=== PATIENT | female | born 1975 | race Caucasian/White ===

== ENCOUNTER 2016-06-04 15:15 | Inpatient (IN) | payer MEDICARE, MEDICAID ==
[~2016-06-04] VITALS: Ht 167.6 cm; Wt 65.1 kg
[~2016-06-04 15:15] MED LIST: GABA-531 PO; OLAN10TA6 PO
[2016-06-04] MEDS ORDERED: LORazepam 2 MG TABLET PO PRN (19:30)
[2016-06-04] MEDS ORDERED: ZOLPIDEM TARTRATE 10 MG TABLET PO PRN (19:30)
[2016-06-04] MEDS ORDERED: HALOPERIDOL 5 MG TABLET PO PRN (19:30)
[2016-06-04] MEDS ORDERED: INFLUENZA VIRUS VACCINE QVS 2016-17 (3YR+)/PF 60 MCG/0.5 ML SYRINGE IM ONE (20:00)
[2016-06-04 20:36] VITALS: BP 141/90
[2016-06-05 06:42] VITALS: BP 131/87
[2016-06-05 07:15] LABS: BASOPHILS # (AUTO) 0.06 K/uL (0.00-0.20); BASOPHILS % (AUTO) 0.9 % (0.0-2.0); EOSINOPHILS # (AUTO) 0.24 K/uL (0.00-0.70); EOSINOPHILS % (AUTO) 3.71 % (1.0-6.0); HEMATOCRIT 38.9 % (36-46); HEMOGLOBIN 13.3 g/dL (12.0-16.0); LYMPHOCYTES # (AUTO) 1.4 K/uL (1.0-4.8); LYMPHOCYTES % (AUTO) 22.2 % (22.0-44.0); MEAN CORPUSCULAR HEMOGLOBIN 31.1 pg (26.0-34.0); MEAN CORPUSCULAR HGB CONC 34.2 G/dL (31.0-37.0); MEAN CORPUSCULAR VOLUME 91 fL (80-100); MONOCYTES # (AUTO) 0.5 K/uL (0.1-1.0); MONOCYTES % (AUTO) 7.1 % (2.0-9.0); NEUTROPHILS # (AUTO) 4.3 K/uL (1.8-7.7); NEUTROPHILS % (AUTO) 66.1 % (40.0-70.0); PLATELET COUNT (AUTO) 274 K/uL (150-450); RED BLOOD CELL COUNT(AUTO) 4.28 MIL/uL (4.00-5.20); RED CELL DISTRIBUTION WIDTH 12.7 % (11.5-14.5); WHITE BLOOD COUNT (AUTO) 6.4 K/uL (4.5-11.0)
[2016-06-05 07:39] LABS: ALANINE AMINOTRANSFERASE 16 U/L (12-78); ALBUMIN 3.7 g/dL (3.4-5.0); ANION GAP 7 mmol/L (8-16); ASPARTATE AMINOTRANSFERASE 13 U/L (15-37); BILIRUBIN,TOTAL 0.6 mg/dL (0.1-1.0); CALCIUM, TOTAL 8.9 mg/dL (8.8-10.5); CARBON DIOXIDE 29 mmol/L (22-29); CHLORIDE 107 mmol/L (98-107); CREATININE 0.68 mg/dL (0.60-1.30); GLOMERULAR FILTR. RATE CALC > 60 mL/min (>60); SODIUM SERUM 143 mmol/L (136-145); THYROID STIMULATING HORMONE 1.91 uIU/mL (0.36-3.74); TOTAL PROTEIN, SERUM 6.8 g/dL (6.4-8.2); UREA NITROGEN, BLOOD 7 mg/dL (7-18)
[2016-06-05 08:21] VITALS: BP 116/72
[2016-06-05] MEDS ORDERED: ACETAMINOPHEN 325 MG TABLET PO PRN (11:45)
[2016-06-05] MEDS ORDERED: BENZOCAINE/MENTHOL LOZENGE MM PRN (11:45)
[2016-06-05] MEDS ORDERED: CloNIDine HCL 0.1 MG TABLET PO PRN (11:45)
[2016-06-05] MEDS ORDERED: LOPERAMIDE HCL 2 MG CAPSULE PO PRN (11:45)
[2016-06-05] MEDS ORDERED: IBUPROFEN 600 MG TABLET PO PRN (11:45)
[2016-06-05] MEDS ORDERED: PETROLATUM,WHITE 71 GM JELLY TP PRN (11:45)
[2016-06-05] MEDS ORDERED: MAG HYDROX/AL HYDROX/SIMETH ES 30 ML SUSPENSION UDCUP PO PRN (11:45)
[2016-06-05] MEDS ORDERED: BACITRACIN 28.4 GM OINTMENT TP PRN (11:45)
[2016-06-05] MEDS ORDERED: MAGNESIUM HYDROXIDE SUSPENSION 30 ML UDCUP PO PRN (11:45)
[2016-06-05] MEDS ORDERED: ALBUTEROL SULFATE HFA 90 MCG/PUFF 8 GM INHALER IH PRN (11:45)
[2016-06-05] MEDS ORDERED: ONDANSETRON HCL 4 MG TABLET PO PRN (11:45)
[2016-06-05] MEDS: OLANZapine 10 MG TABLET PO SCH (20:24)
[2016-06-06 06:28] VITALS: BP 135/72
[2016-06-06 08:21] VITALS: BP 127/99
[2016-06-06 16:12] VITALS: BP 134/87
[2016-06-06] MEDS: OLANZapine 10 MG TABLET PO SCH (20:32)
[2016-06-07 06:24] VITALS: BP 128/72
[2016-06-07 08:40] VITALS: BP 124/73
[2016-06-07] MEDS ORDERED: PHENYLEPHRINE/SHK LV/MIN OIL/PET 57 GM OINTMENT TP PRN ×2 (19:00→21:15)
[2016-06-07] MEDS: OLANZapine 10 MG TABLET PO SCH (20:32)
[2016-06-08 03:00] VITALS: BP 125/89
[2016-06-08 16:27] VITALS: BP 134/84
[2016-06-08] MEDS: OLANZapine 10 MG TABLET PO SCH (20:03)
[2016-06-09 00:05] VITALS: BP 119/78
[2016-06-09 08:32] VITALS: BP 91/54
[2016-06-09 16:02] VITALS: BP 138/88
[2016-06-09] MEDS: OLANZapine 10 MG TABLET PO SCH (21:11)
[2016-06-10 07:00] VITALS: BP 140/72
[2016-06-10 16:04] VITALS: BP 128/93
[2016-06-10] MEDS: OLANZapine 10 MG TABLET PO SCH (20:15)
[2016-06-11 05:59] VITALS: BP 124/89
[2016-06-11 08:39] VITALS: BP 123/72
[2016-06-11 16:07] VITALS: BP 123/83
[2016-06-11] MEDS: OLANZapine 10 MG TABLET PO SCH (20:10)
[2016-06-12 08:27] VITALS: BP 100/50
[2016-06-12] MEDS ORDERED: TUBERCULIN, PURIFIED PROTEIN DERIVATIVE 5 TU/0.1 ML SYG ID ONE (16:45)
[2016-06-12] MEDS: OLANZapine 10 MG TABLET PO SCH (20:26)
[2016-06-13 07:01] VITALS: BP 110/76
[2016-06-13 08:28] VITALS: BP 116/69
[2016-06-13] MEDS: OLANZapine 10 MG TABLET PO SCH (20:08)
[2016-06-14 06:56] VITALS: BP 112/68
[2016-06-14 08:25] VITALS: BP 129/76
[2016-06-14] MEDS: OLANZapine 10 MG TABLET PO SCH (20:34)
[2016-06-15 08:38] VITALS: BP 100/58
[2016-06-15 16:24] VITALS: BP 134/64
[2016-06-15] MEDS: OLANZapine 10 MG TABLET PO SCH (21:00)
[2016-06-16 06:20] VITALS: BP 125/77
[2016-06-16 16:30] VITALS: BP 126/77
[2016-06-16] MEDS: OLANZapine 10 MG TABLET PO SCH (20:03)
[2016-06-17 09:38] VITALS: BP 122/70
[2016-06-17] MEDS: HALOPERIDOL DECANOATE 100 MG/ML AMP IM SCH ×2 (13:15→21:43)
[2016-06-17 16:00] VITALS: BP 130/75
[2016-06-17] MEDS: OLANZapine 10 MG TABLET PO SCH ×2 (20:43→21:25)
[2016-06-18 16:11] VITALS: BP 110/71
[2016-06-19 09:01] VITALS: BP 131/83
[2016-06-19 16:00] VITALS: BP 105/64
[2016-06-19] MEDS: MUPIROCIN CALCIUM 2% 22 GM OINTMENT TP SCH (16:14)
[2016-06-19] MEDS: OLANZapine 10 MG TABLET PO SCH (20:50)
[2016-06-20] MEDS: MUPIROCIN CALCIUM 2% 22 GM OINTMENT TP SCH (09:00)
[2016-06-20] MEDS: OLANZapine 10 MG TABLET PO SCH (20:22)
[2016-06-21] MEDS: OLANZapine 10 MG TABLET PO SCH (21:04)
[2016-06-22 08:28] VITALS: BP 112/60
[2016-06-22] MEDS ORDERED: OLAN10TA3 PO (09:38)
[2016-06-22] MEDS ORDERED: HALOD100I IM (09:38)
== END 2016-06-22 10:00 | disposition home or self-care (01) | DRG 885 ==
LOC: B3A 19:30 → B2S 06-15 11:05
PROVIDERS: ADMIT Psychiatry & Neurology Psychiatry; ATTEND Psychiatry & Neurology Psychiatry
DX: F25.9 Schizoaffective disorder, unspecified (principal); K59.00 Constipation, unspecified; G47.00 Insomnia, unspecified; F17.200 Nicotine dependence, unspecified, uncomplicated; K62.89 Other specified diseases of anus and rectum; F22 Delusional disorders; Z53.29 Procedure and treatment not carried out because of patient's decision for other reasons; Z98.51 Tubal ligation status; Z71.6 Tobacco abuse counseling; Z28.21 Immunization not carried out because of patient refusal
CPT/HCPCS: 84436; 84439; 84443; 87081; J1631

== ENCOUNTER 2018-12-20 14:23 | Emergency (ER) | payer MEDICARE, OTHER ==
[~2018-12-20] VITALS: Ht 172.7 cm; Wt 63.6 kg
[~2018-12-20 14:23] MED LIST changes: -GABA-531 PO; +HALOD100I IM; +OLAN10TA3 PO; -OLAN10TA6 PO
[2018-12-20 16:00] VITALS: BP 142/89
== END 2018-12-20 16:23 | disposition home or self-care (01) ==
LOC: EMS 14:25
DX: Z78.0 Asymptomatic menopausal state (principal); F32.9 Major depressive disorder, single episode, unspecified; F20.9 Schizophrenia, unspecified; F17.210 Nicotine dependence, cigarettes, uncomplicated
CPT/HCPCS: 99406

== ENCOUNTER 2018-12-28 15:11 | Emergency (ER) | payer MEDICARE, OTHER ==
[~2018-12-28] VITALS: Ht 160 cm; Wt 69.8 kg
[~2018-12-28 15:11] MED LIST changes: -HALOD100I IM
[2018-12-28] MEDS ORDERED: IBUPROFEN 600 MG TABLET PO ONE (15:30)
[2018-12-28 16:58] VITALS: BP 125/79
== END 2018-12-28 17:27 | disposition home or self-care (01) ==
LOC: EMS 15:12
DX: S93.492A Sprain of other ligament of left ankle, initial encounter (principal); F32.9 Major depressive disorder, single episode, unspecified; F20.9 Schizophrenia, unspecified; F17.210 Nicotine dependence, cigarettes, uncomplicated; Z98.51 Tubal ligation status; Z79.899 Other long term (current) drug therapy; Z98.890 Other specified postprocedural states; X50.1XXA Overexertion from prolonged static or awkward postures, initial encounter; Y93.01 Activity, walking, marching and hiking; Y92.89 Other specified places as the place of occurrence of the external cause; Y99.8 Other external cause status

== ENCOUNTER 2020-03-02 17:59 | Emergency (ER) | payer MEDICARE, OTHER ==
[~2020-03-02] VITALS: Ht 175.3 cm; Wt 70.5 kg
[2020-03-02 18:06] VITALS: BP 118/78
== END 2020-03-02 22:24 | disposition left against medical advice (07) ==
LOC: EMS 18:01
DX: Z00.00 Encounter for general adult medical examination without abnormal findings (principal); Z53.21 Procedure and treatment not carried out due to patient leaving prior to being seen by health care provider

== ENCOUNTER 2020-11-23 00:04 | Emergency (ER) | payer MEDICARE, OTHER ==
[~2020-11-23] VITALS: Ht 170.2 cm; Wt 60.0 kg
[~2020-11-23 00:04] MED LIST changes: -OLAN10TA3 PO; +OLAN10TA74 PO
[2020-11-23 01:07] VITALS: BP 112/85
[2020-11-23 01:12] LABS: BASOPHILS % (AUTO) 1.1 % (0.0-2.0); EOSINOPHILS % (AUTO) 3.2 % (1.0-6.0); HEMATOCRIT 37.1 % (36-46); HEMOGLOBIN 12.8 g/dL (12.0-16.0); LYMPHOCYTES # (AUTO) 1.5 K/uL (1.0-4.8); LYMPHOCYTES % (AUTO) 23.9 % (22.0-44.0); MEAN CORPUSCULAR HEMOGLOBIN 31.4 pg (26.0-34.0); MEAN CORPUSCULAR HGB CONC 34.4 G/dL (31.0-37.0); MEAN CORPUSCULAR VOLUME 91 fL (80-100); MONOCYTES # (AUTO) 0.6 K/uL (0.1-1.0); MONOCYTES % (AUTO) 8.9 % (2.0-9.0); NEUTROPHILS # (AUTO) 3.9 K/uL (1.8-7.7); NEUTROPHILS % (AUTO) 62.9 % (40.0-70.0); PLATELET COUNT (AUTO) 278 K/uL (150-450); RED BLOOD CELL COUNT(AUTO) 4.07 MIL/uL (4.00-5.20); RED CELL DISTRIBUTION WIDTH 12.1 % (11.5-14.5)
[2020-11-23 01:22] LABS: ANION GAP 6 mmol/L (8-16); CALCIUM, TOTAL 9.2 mg/dL (8.8-10.5); CARBON DIOXIDE 28 mmol/L (22-29); CHLORIDE 99 mmol/L (98-107); CREATININE 0.76 mg/dL (0.60-1.30); GLOMERULAR FILTR. RATE CALC > 60 mL/min (>60); GLUCOSE,RANDOM 105 mg/dL (70-110); POTASSIUM 4.1 mmol/L (3.5-5.1); SODIUM SERUM 133 mmol/L (136-145); UREA NITROGEN, BLOOD 6 mg/dL (7-18)
[2020-11-23] MEDS ORDERED: LORazepam 1 MG TABLET PO ONE (01:30)
[2020-11-23 01:34] LABS: ALANINE AMINOTRANSFERASE 23 U/L (12-78); ALBUMIN 4.5 g/dL (3.4-5.0); ALKALINE PHOSPHATASE 40 U/L (46-116); ASPARTATE AMINOTRANSFERASE 17 U/L (15-37); BILIRUBIN,TOTAL 0.6 mg/dL (0.1-1.0); HCG,QUANTITATIVE < 1 mIU/mL (0-6); TOTAL PROTEIN, SERUM 7.9 g/dL (6.4-8.2)
== END 2020-11-23 02:11 | disposition home or self-care (01) ==
LOC: EMS 00:04
DX: F41.9 Anxiety disorder, unspecified (principal); F32.9 Major depressive disorder, single episode, unspecified; F20.9 Schizophrenia, unspecified; F17.210 Nicotine dependence, cigarettes, uncomplicated
CPT/HCPCS: 36415; 80053; 84702; 85025; 99283; G0480

== ENCOUNTER → 2023-07-09 | Emergency (ER) | payer MEDICARE, OTHER ==
[~2023-07-09] VITALS: Ht 170.2 cm; Wt 61.4 kg
[2023-07-09 19:54] VITALS: TEMP 98.6
[2023-07-09 20:45] LABS: PH,URINE DRUG SCREEN 6.5 (5.0-8.0)
[2023-07-09 20:53] LABS: AMPHET/METH SCREEN,URINE NEGATIVE (NEGATIVE); BARBITURATE SCREEN, URINE NEGATIVE (NEGATIVE); BENZODIAZEPINES SCREEN,URINE NEGATIVE (NEGATIVE); CANNABINOID SCREEN,URINE NEGATIVE (NEGATIVE); COCAINE SCREEN,URINE NEGATIVE (NEGATIVE); METHADONE SCREEN, URINE NEGATIVE (NEGATIVE); OPIATE SCREEN,URINE NEGATIVE (NEGATIVE)
[2023-07-09 20:55] LABS: BASOPHILS % (AUTO) 1.1 % (0.0-2.0); EOSINOPHILS % (AUTO) 0.8 % (1.0-6.0); HEMATOCRIT 37.2 % (36-46); HEMOGLOBIN 12.8 g/dL (12.0-16.0); LYMPHOCYTES # (AUTO) 1.2 K/uL (1.0-4.8); LYMPHOCYTES % (AUTO) 18.3 % (22.0-44.0); MEAN CORPUSCULAR HEMOGLOBIN 31.7 pg (26.0-34.0); MEAN CORPUSCULAR HGB CONC 34.5 G/dL (31.0-37.0); MEAN CORPUSCULAR VOLUME 92 fL (80-100); MONOCYTES # (AUTO) 0.3 K/uL (0.1-1.0); MONOCYTES % (AUTO) 4.5 % (2.0-9.0); NEUTROPHILS # (AUTO) 4.9 K/uL (1.8-7.7); NEUTROPHILS % (AUTO) 75.3 % (40.0-70.0); PLATELET COUNT (AUTO) 254 K/uL (150-450); RED BLOOD CELL COUNT(AUTO) 4.04 MIL/uL (4.00-5.20); WHITE BLOOD COUNT (AUTO) 6.5 K/uL (4.5-11.0)
[2023-07-09 20:56] LABS: ALCOHOL, URINE DRUG SCREEN NEGATIVE (NEGATIVE)
[2023-07-09 21:06] LABS: ANION GAP 12 mmol/L (8-16); CALCIUM, TOTAL 9.4 mg/dL (8.8-10.5); CARBON DIOXIDE 25 mmol/L (22-29); CHLORIDE 101 mmol/L (98-107); CREATININE 0.87 mg/dL (0.60-1.30); GLOMERULAR FILTR. RATE CALC > 60 mL/min (>60); GLUCOSE,RANDOM 115 mg/dL (70-110); SODIUM SERUM 138 mmol/L (136-145); UREA NITROGEN, BLOOD 7 mg/dL (7-18)
[2023-07-09 21:07] LABS: PHENCYCLIDINE SCREEN,URINE NEGATIVE (NEGATIVE)
[2023-07-09 21:12] LABS: ALANINE AMINOTRANSFERASE 14 U/L (12-78); ALBUMIN 4.4 g/dL (3.4-5.0); ALKALINE PHOSPHATASE 49 U/L (46-116); ASPARTATE AMINOTRANSFERASE 16 U/L (15-37); BILIRUBIN,TOTAL 0.8 mg/dL (0.1-1.0); TOTAL PROTEIN, SERUM 7.8 g/dL (6.4-8.2)
[2023-07-09 21:14] LABS: ALCOHOL, BLOOD (SERUM) < 3 mg/dL (0-10)
[2023-07-09 22:08] VITALS: BP 136/84; PULSE 80; RESP 18
== END | disposition still patient (30) ==
LOC: EMS 19:57
DX: F41.9 Anxiety disorder, unspecified (principal); F32.A Depression, unspecified; F20.9 Schizophrenia, unspecified; F17.210 Nicotine dependence, cigarettes, uncomplicated; Z98.51 Tubal ligation status
CPT/HCPCS: 99283; 80053; 85025; 36415; 80307; G0480

== ENCOUNTER 2024-10-09 20:31 | Inpatient (IN) | payer MEDICARE, MEDICAID ==
[~2024-10-09] VITALS: Ht 175.3 cm; Wt 67.6 kg
[~2024-10-09 20:31] MED LIST changes: +DIVA-111 PO; +GABA-1181 PO; +HYDR-4808 PO
[2024-10-09 21:17] LABS: COVID AG,FIA SOURCE NASAL SWAB
[2024-10-09 21:17] LABS: PLATELET COUNT (AUTO) 275 K/uL (150-450); RED BLOOD CELL COUNT(AUTO) 4.01 MIL/uL (4.00-5.20); RED CELL DISTRIBUTION WIDTH 11.7 % (11.5-14.5); WHITE BLOOD COUNT (AUTO) 6.1 K/uL (4.5-11.0)
[2024-10-09 21:25] LABS: CALCIUM, TOTAL 9.6 mg/dL (8.8-10.5); CREATININE 0.92 mg/dL (0.60-1.30); GLOMERULAR FILTR. RATE CALC > 60 mL/min (>60); GLUCOSE,RANDOM 95 mg/dL (70-110); SODIUM SERUM 138 mmol/L (136-145); UREA NITROGEN, BLOOD 8 mg/dL (7-18)
[2024-10-09 21:37] LABS: SARS-COV2 (COVID) ANTIGEN,FIA Negative (Negative)
[2024-10-09 21:59] LABS: PH,URINE DRUG SCREEN 6.0 (5.0-8.0)
[2024-10-09] MEDS ORDERED: ZOLPIDEM TARTRATE 10 MG TABLET PO PRN (22:00)
[2024-10-09 22:10] LABS: AMPHET/METH SCREEN,URINE NEGATIVE (NEGATIVE); BARBITURATE SCREEN, URINE NEGATIVE (NEGATIVE); CANNABINOID SCREEN,URINE NEGATIVE (NEGATIVE); COCAINE SCREEN,URINE NEGATIVE (NEGATIVE); METHADONE SCREEN, URINE NEGATIVE (NEGATIVE)
[2024-10-09 22:19] LABS: ALCOHOL, URINE DRUG SCREEN NEGATIVE (NEGATIVE)
[2024-10-10 01:31] VITALS: O2SAT 98
[2024-10-10 02:52] VITALS: BP 132/97; PULSE 63; RESP 16; TEMP 98.6; O2SAT 97
[2024-10-10 08:44] VITALS: RESP 18
[2024-10-10] MEDS ORDERED: BACITRACIN 28 GM OINTMENT TP PRN (10:00)
[2024-10-10] MEDS ORDERED: MAG HYDROX/ALUMINUM HYD/SIMETH ES 30 ML SUSPENSION UDCUP PO PRN (10:00)
[2024-10-10] MEDS ORDERED: ACETAMINOPHEN 325 MG TABLET PO PRN (10:00)
[2024-10-10] MEDS ORDERED: BENZOCAINE/MENTHOL [CEPACOL] LOZENGE PO PRN (10:00)
[2024-10-10] MEDS ORDERED: LOPERAMIDE HCL 2 MG CAPSULE PO PRN (10:00)
[2024-10-10] MEDS ORDERED: PETROLATUM,WHITE 28 GM JELLY TP PRN (10:00)
[2024-10-10] MEDS ORDERED: OMEPRAZOLE 20 MG CAPSULE PO PRN (10:00)
[2024-10-10] MEDS ORDERED: ONDANSETRON 4 MG TABLET PO PRN (10:00)
[2024-10-10] MEDS ORDERED: DOCUSATE SODIUM 100 MG CAPSULE PO PRN (10:00)
[2024-10-10] MEDS ORDERED: ALBUTEROL SULFATE HFA 90 MCG/PUFF 8 GM INHALER IH PRN (10:00)
[2024-10-10] MEDS: GABAPENTIN 300 MG CAPSULE PO SCH (12:43)
[2024-10-10 20:29] VITALS: BP 115/68; PULSE 65; RESP 17; TEMP 98.4; O2SAT 97
[2024-10-11 08:07] LABS: PLATELET COUNT (AUTO) 245 K/uL (150-450); RED BLOOD CELL COUNT(AUTO) 3.99 MIL/uL (4.00-5.20); RED CELL DISTRIBUTION WIDTH 11.6 % (11.5-14.5); WHITE BLOOD COUNT (AUTO) 4.6 K/uL (4.5-11.0)
[2024-10-11 08:33] LABS: ASPARTATE AMINOTRANSFERASE 13 U/L (15-37); CALCIUM, TOTAL 9.0 mg/dL (8.8-10.5); CHOL/HDL RATIO 1.9 (3.9-5.7); CREATININE 0.76 mg/dL (0.60-1.30); GLOMERULAR FILTR. RATE CALC > 60 mL/min (>60); GLUCOSE,RANDOM 94 mg/dL (70-110); LDL CHOL (CALC.) 76 mg/dL (0-130); SODIUM SERUM 143 mmol/L (136-145); TOTAL PROTEIN, SERUM 6.3 g/dL (6.4-8.2); UREA NITROGEN, BLOOD 9 mg/dL (7-18)
[2024-10-11 14:03] VITALS: RESP 18
[2024-10-11] MEDS: GABAPENTIN 400 MG CAPSULE PO SCH (17:45)
[2024-10-11 20:22] VITALS: BP 127/88; PULSE 72; RESP 18; TEMP 98.6
[2024-10-11] MEDS: MAGNESIUM HYDROXIDE SUSPENSION 30 ML UDCUP PO PRN (21:32)
[2024-10-12 13:18] VITALS: RESP 18
[2024-10-12 17:05] VITALS: RESP 18
[2024-10-12] MEDS: IBUPROFEN 600 MG TABLET PO PRN (17:05)
[2024-10-12 18:21] VITALS: RESP 18
[2024-10-12 20:31] VITALS: RESP 17
[2024-10-13 20:14] VITALS: BP 127/84; PULSE 81; RESP 18; TEMP 98.2; O2SAT 97
[2024-10-14 08:15] VITALS: BP 118/68; PULSE 62; RESP 16; TEMP 98.4; O2SAT 98
[2024-10-15 08:05] VITALS: BP 130/66; PULSE 62; RESP 17; TEMP 98.5; O2SAT 97
== END 2024-10-15 11:45 | disposition home or self-care (01) | DRG 885 ==
LOC: EMS 20:31 → B2X 10-10 00:05
PROVIDERS: ADMIT Psychiatry & Neurology Psychiatry; ATTEND Psychiatry & Neurology Psychiatry
DX: F25.9 Schizoaffective disorder, unspecified (principal); I10 Essential (primary) hypertension; K59.00 Constipation, unspecified; G47.00 Insomnia, unspecified; F17.210 Nicotine dependence, cigarettes, uncomplicated; Z20.822 Contact with and (suspected) exposure to COVID-19; F41.9 Anxiety disorder, unspecified; F32.A Depression, unspecified; Z91.128 Patient's intentional underdosing of medication regimen for other reason; Z71.6 Tobacco abuse counseling
CPT/HCPCS: 80048; 80053; 80061; 80307; 83036; 84436; 84443; 84703; 85025; G0480